=== PATIENT | male | born 1935 | race Caucasian/White ===

== ENCOUNTER 2017-02-21 18:37 | Emergency (ER) | payer OTHER ==
[~2017-02-21] VITALS: Ht 165.1 cm; Wt 101.2 kg
--- NOTE | 2017-02-21 18:42 | NUR ---
[id number] FROM HOME: S/P WITNESSED SYNCOPE, RECTAL BLEEDING x 2 DAYS, WEAKNESS. LFA SKIN TEAR. PLACED ON MONITOR. AWAITING MD ORDER
--- NOTE | 2017-02-21 18:56 | NUR ---
CALLED PHARMACY FOR PEPCID
[2017-02-21] MEDS ORDERED: FAMOTIDINE/PF INJ 40 MG in IV D5W 50 ML IV ONE (19:00)
[2017-02-21] MEDS ORDERED: IV NS 0.9% 1,000 ML BAG IV ONE ×2 (19:00→20:00)
[2017-02-21 19:14] LABS: BASOPHILS % (AUTO) 0.1 % (0.0-2.0); EOSINOPHILS # (AUTO) 0.1 /CMM (0.0-0.7); EOSINOPHILS % (AUTO) 0.5 % (0.0-6.0); HEMATOCRIT 25 % (39-51); HEMOGLOBIN 8.1 g/dL (13.5-17.5); LYMPHOCYTES # (AUTO) 2.1 /CMM (0.8-4.8); LYMPHOCYTES % (AUTO) 15.9 % (20.0-44.0); MEAN CORPUSCULAR HEMOGLOBIN 29 PG (26.0-33.0); MEAN CORPUSCULAR HGB CONC 33 g/dl (31.0-36.0); MEAN CORPUSCULAR VOLUME 88 fL (80-96); MONOCYTES # (AUTO) 0.4 /CMM (0.1-1.30); MONOCYTES % (AUTO) 2.7 % (2.0-12.0); NEUTROPHILS # (AUTO) 10.8 /CMM (1.8-8.9); NEUTROPHILS % (AUTO) 80.8 % (43.0-81.0); PLATELET COUNT (AUTO) 220 /CMM (150-450); RDW COEFFICIENT OF VARIATION 15.1 (11.5-15.0); RED BLOOD CELL COUNT(AUTO) 2.86 MIL/uL (4.5-6.0); WHITE BLOOD COUNT (AUTO) 13.4 K/uL (4.3-11.0)
[2017-02-21 19:20] LABS: CALCIUM, SERUM 8.2 mg/dL (8.5-10.1); CARBON DIOXIDE 23 mmol/L (21-32); CHLORIDE 104 mmol/L (98-107); CREATININE 2.1 mg/dL (0.6-1.3); GLUCOSE 269 mg/dL (74-106); SODIUM SERUM 139 mmol/L (136-145); UREA NITROGEN, BLOOD 36 mg/dL (7-18)
[2017-02-21 19:26] LABS: ALANINE AMINOTRANSFERASE 19 U/L (12-78); ALBUMIN 2.6 g/dL (3.4-5.0); ALKALINE PHOSPHATASE 83 U/L (46-116); ASPARTATE AMINOTRANSFERASE 17 U/L (15-37); BILIRUBIN,DIRECT 0.1 mg/dL (0.0-0.2); BILIRUBIN,TOTAL 0.3 mg/dL (0.2-1.0); LIPASE 118 U/L (73-393); TOTAL PROTEIN, SERUM 5.4 g/dL (6.4-8.2)
[2017-02-21 19:28] LABS: TROPONIN I < 0.017 ng/mL (0.00-0.056)
[2017-02-21 19:30] LABS: INR 1.17 (0.87-1.13); PROTHROMBIN TIME 12.2 SECS (9.5-12.7)
--- NOTE | 2017-02-21 20:01 | NUR ---
CALLED [facility], PRESENTED PT, AWAITING CALL BACK FROM [facility]
--- NOTE | 2017-02-21 20:11 | NUR ---
RESEARCH ADMINISTRATOR AT BEDSIDE TO DRAW BLOOD FOR REPEAT H/H.
[2017-02-21 20:29] LABS: HEMOGLOBIN 7.3 g/dL (13.5-17.5)
--- NOTE | 2017-02-21 20:31 | NUR ---
1 UNIT [facility]'S INFUSION STARTED PER MD ORDERS. ONGOING VS MONITORING.
--- NOTE | 2017-02-21 20:45 | NUR ---
CALLED [facility] TO FOLLOW UP WITH CALLBACK FROM [facility], PULP BLEACHER SAID HE SHOULD BE CALLING US SOON
--- NOTE | 2017-02-21 21:21 | NUR ---
[facility] [phone] MD [place] ETA [id number]
--- NOTE | 2017-02-21 22:00 | NUR ---
1 UNIT OF [facility] TRANSFUSED, VSS/NO ADVERSED REACTION NOTED.
--- NOTE | 2017-02-21 22:07 | NUR ---
REPORT GIVEN TO JEREMY WITH [facility], PT IS BEING TRANS TO [facility]. SPOKE WITH [facility] CHARGE NURSE IN ER, REPORT GIVEN. PT REMAINS AOX4, VSS, NAD NOTED.
[2017-02-21 22:09] VITALS: BP 122/80
== END 2017-02-21 22:12 | disposition short-term general hospital (02) ==
LOC: ER 18:38
DX: K92.2 Gastrointestinal hemorrhage, unspecified (principal); D62 Acute posthemorrhagic anemia; Z79.82 Long term (current) use of aspirin
CPT/HCPCS: 36415; 80048-TC; 80076-TC; 83690-TC; 84484-TC; 85025-TC; 85027-TC; 85730-TC; 86850-TC; 86921-TC; 87081-TC; A4606; J3490; J7030; J7050; J7060; P9016-BL; Z7610